=== PATIENT | female | born 1980 | race Caucasian/White ===

== ENCOUNTER → 2021-02-05 11:38 | Outpatient (CLI) | payer OTHER, SELFPAY ==
--- NOTE | 2021-02-05 11:43 | XR_ITS ---
PROCEDURE: XR HAND RT MIN 3V CLINICAL INDICATION: right hand pain COMPARISON: No exams were available for comparison FINDINGS: Comminuted fracture involves the distal aspect of the 5th metacarpal with mild radial and palmar angulation of the distal fracture fragment with only minimal lateral and palmar displacement. The joint spaces are well-preserved. No significant degenerative/arthritic changes. No erosive changes evident. Other findings:None. IMPRESSION: Boxer's fracture 5th metacarpal Dictated by: Prudencio Bianchi MD 02/05/2021 12:06 Prudencio Bianchi MD in [facility] 02/05/2021 12:06
== END ==
PROVIDERS: PCP Physician Assistant; Visit Provider Physician Assistant
DX: M79.641 Pain in right hand (principal)
CPT/HCPCS: 73130

== ENCOUNTER → 2021-03-02 11:35 | Outpatient (CLI) | payer OTHER, SELFPAY ==
[2021-03-02] VITALS (8 sets, daily range): BP systolic 123–148; BP diastolic 74–98; PULSE 74–91; RESP 18; TEMP 36.9; O2SAT 98–100
== END ==
PROVIDERS: PCP Physician Assistant; Visit Provider Physician Assistant
DX: U07.1 COVID-19 (principal); Z23 Encounter for immunization
CPT/HCPCS: 96365

== ENCOUNTER → 2021-05-25 13:32 | Outpatient (CLI) | payer OTHER, SELFPAY ==
[2021-05-25 14:24] LABS: Chloride 104 mmol/L (98-107); Sodium 138 mmol/L (136-145)
[2021-05-25 14:25] LABS: Potassium 4.3 mmoL/L (3.5-5.1)
[2021-05-25 14:27] LABS: Alanine Aminotransferase 39 U/L (12-78); Albumin Level 3.9 g/dl (3.5-5.0); Albumin/Globulin Ratio 1.6 (1.1-1.8); Alkaline Phosphatase 62 U/L (38-126); Anion Gap 11.3 mEq/L (5-15); Aspartate Amino Transferase 78 U/L (14-36); Blood Urea Nitrogen 10 mg/dl (7-17); Calcium 8.5 mg/dl (8.4-10.2); Carbon Dioxide 27 mmol/L (22.0-30.0); Cholesterol 155 mg/dl (140-200); Estimated Glomerular Filt Rate 110 ml/min (>60); GFR (African American) 133 ML/MIN (>60); Globulin 2.5 g/dL (1.3-3.2); Glucose 88 mg/dl (74-100); Iron 20 ug/dL (37-170); Total Protein,Serum 6.4 g/dl (6.3-8.2); Triglycerides 90 mg/dl (30-150); VLDL Cholesterol 18 mg/dL (0-40)
[2021-05-25 14:28] LABS: Basophils # 0.1 K/mm3 (0-0.2); Basophils % 0.9 % (0.1-2.0); Eosinophils # 0.1 K/mm3 (0.0-0.4); Eosinophils % 1.5 % (0.1-12.0); HDL Cholesterol 79 mg/dl (40-60); Hematocrit 33.8 % (37.0-47.0); Hemoglobin 10.5 g/dL (12.2-16.2); Lymphocytes # 2.2 K/mm3 (0.7-4.5); Mean Corpuscular HGB Conc 31.1 g/dL (31.8-35.4); Mean Corpuscular Hemoglobin 24.2 pg (27.0-31.2); Mean Platelet Volume 7.7 fl (7.4-10.4); Monocytes # 0.4 K/mm3 (0.1-1.0); Monocytes % 5.6 % (1.7-9.3); Neutrophils # 4.1 K/mm3 (1.8-7.8); Platelet Count 506 K/mm3 (142-424); Red Blood Count 4.34 M/mm3 (4.20-5.40); Red Cell Distribution Width 17.5 % (11.5-17.5); White Blood Count 6.9 K/mm3 (4.8-10.8)
[2021-05-25 14:37] LABS: Total Iron Binding Capacity 467 ug/dL (265-497)
[2021-05-25 14:38] LABS: Direct LDL Cholesterol 60.59 mg/dL (100-129)
[2021-05-25 14:41] LABS: Bilirubin,Total < 0.1 mg/dl (0.2-1.3)
[2021-05-25 14:49] LABS: 25-OH Vitamin D, Total 21.9 ng/mL (30-100)
[2021-05-25 14:57] LABS: Thyroid Stimulating Hormone 1.17 uIU/mL (0.465-4.68)
[2021-05-25 15:22] LABS: Vitamin B12 273 pg/mL (239-931)
[2021-05-27 09:09] LABS: Transferrin 387 mg/dL (192-364)
== END ==
PROVIDERS: Visit Provider Physician Assistant
DX: R53.83 Other fatigue (principal); E55.9 Vitamin D deficiency, unspecified; Z79.899 Other long term (current) drug therapy
CPT/HCPCS: 36415; 80053; 80061; 82306; 82607; 83540; 83550; 84443; 84466; 85025

== ENCOUNTER → 2021-07-02 11:55 | Outpatient (CLI) | payer OTHER, SELFPAY ==
[2021-07-02 12:50] LABS: Basophils # 0.1 K/mm3 (0-0.2); Basophils % 0.9 % (0.1-2.0); Eosinophils # 0.1 K/mm3 (0.0-0.4); Hematocrit 37.5 % (37.0-47.0); Hemoglobin 11.9 g/dL (12.2-16.2); Lymphocytes # 1.9 K/mm3 (0.7-4.5); Lymphocytes % 33.1 % (10-50); Mean Corpuscular HGB Conc 31.6 g/dL (31.8-35.4); Mean Corpuscular Hemoglobin 27.5 pg (27.0-31.2); Mean Corpuscular Volume 86.9 fl (81-99); Mean Platelet Volume 7.5 fl (7.4-10.4); Monocytes # 0.3 K/mm3 (0.1-1.0); Monocytes % 4.4 % (1.7-9.3); Neutrophils # 3.5 K/mm3 (1.8-7.8); Neutrophils % 60.6 % (37.0-80.0); Platelet Count 457 K/mm3 (142-424); Red Blood Count 4.31 M/mm3 (4.20-5.40); Red Cell Distribution Width 21.2 % (11.5-17.5); White Blood Count 5.8 K/mm3 (4.8-10.8)
[2021-07-02 13:13] LABS: Iron 28 ug/dL (37-170)
[2021-07-02 13:22] LABS: Total Iron Binding Capacity 363 ug/dL (265-497)
== END ==
PROVIDERS: Visit Provider Physician Assistant
DX: Z00.00 Encounter for general adult medical examination without abnormal findings (principal)
CPT/HCPCS: 36415; 82728; 83540; 83550; 85025

== ENCOUNTER → 2022-07-05 15:31 | Outpatient (CLI) | payer OTHER, SELFPAY ==
[2022-07-05 14:11] LABS: Basophils # 0.1 K/mm3 (0-0.2); Basophils % 0.9 % (0.1-2.0); Eosinophils # 0.1 K/mm3 (0.0-0.4); Eosinophils % 1.2 % (0.1-12.0); Hematocrit 45.1 % (37.0-47.0); Hemoglobin 14.7 g/dL (12.2-16.2); Lymphocytes # 2.5 K/mm3 (0.7-4.5); Lymphocytes % 29.7 % (10-50); Mean Corpuscular HGB Conc 32.6 g/dL (31.8-35.4); Mean Corpuscular Hemoglobin 30.6 pg (27.0-31.2); Mean Corpuscular Volume 93.9 fl (81-99); Mean Platelet Volume 8.3 fl (7.4-10.4); Monocytes # 0.4 K/mm3 (0.1-1.0); Monocytes % 4.6 % (1.7-9.3); Neutrophils # 5.2 K/mm3 (1.8-7.8); Neutrophils % 63.6 % (37.0-80.0); Platelet Count 457 K/mm3 (142-424); Red Blood Count 4.81 M/mm3 (4.20-5.40); White Blood Count 8.2 K/mm3 (4.8-10.8)
[2022-07-05 14:15] LABS: Iron 125 ug/dL (37-170)
[2022-07-05 14:51] LABS: Ferritin 16.6 ng/ml (6.24-137)
[2022-07-05 15:01] LABS: Total Iron Binding Capacity 358 ug/dL (265-497)
[2022-07-05 15:30] LABS: 25-OH Vitamin D, Total 33.5 ng/mL (30-100)
[2022-07-05 16:02] LABS: Vitamin B12 614 pg/mL (239-931)
[2022-07-07 15:35] LABS: Peripheral Smear Review Scanned Result
== END ==
PROVIDERS: PCP Physician Assistant; Visit Provider Physician Assistant
DX: D51.9 Vitamin B12 deficiency anemia, unspecified (principal); E55.9 Vitamin D deficiency, unspecified; E66.9 Obesity, unspecified; Z68.39 Body mass index [BMI] 39.0-39.9, adult; Z86.2 Personal history of diseases of the blood and blood-forming organs and certain disorders involving the immune mechanism; Z90.710 Acquired absence of both cervix and uterus
CPT/HCPCS: 82306; 82607; 82728; 83540; 83550; 85025

== ENCOUNTER 2022-09-15 11:52 | Emergency (ER) | payer BC, SELFPAY ==
[2022-09-15] VITALS (11 sets, daily range): BP systolic 123–164; BP diastolic 80–96; PULSE 85–105; RESP 13–19; TEMP 36.7–36.9; O2SAT 96–100; BMI 37.0
--- NOTE | 2022-09-15 11:58 | ECG_ITS ---
APPROVED REPORT Exam: Resting ECG HR:110 bpm ECG Measurements Heart Rate 110 AXES MI 146 P 62 QRSd 97 QRS 91 QT 324 T 61 QTc 389 Conclusion SINUS TACHYCARDIA WITH OCCASIONAL VENTRICULAR PREMATURE COMPLEXES POSSIBLE LEFT ATRIAL ENLARGEMENT [-0.1mV P-WAVE IN V1/V2] BORDERLINE RIGHT AXIS DEVIATION [QRS AXIS > 90] INCOMPLETE RIGHT BUNDLE BRANCH BLOCK [90+ ms QRS DURATION, TERMINAL R IN V1/V2, 40+ ms S IN I/aVL/V4/V5/V6] MODERATE ST DEPRESSION [0.05+ mV ST DEPRESSION] ABNORMAL ECG UNCONFIRMED REPORT Electronically signed by : John Zavaleta MD 09/15/2022 21:43:37
--- NOTE | 2022-09-15 11:59 | XR_ITS ---
PROCEDURE INFORMATION: Exam: XR Chest Exam date and time: 09/15/2022 12:29 PM Age: 42 years old Clinical indication: Other: Chest discomfort; Patient HX: Smoker TECHNIQUE: Imaging protocol: Radiologic exam of the chest. Views: 1 view. Portable upright chest x-ray. COMPARISON: No relevant prior studies available. FINDINGS: Lungs: No consolidation or lung nodules. At least 1 or more subcentimeter calcified granulomas in the right lung. Pleural spaces: No pleural effusion. No pneumothorax. Heart/Mediastinum: No abnormalities. No cardiomegaly. No pulmonary vascular congestion. Bones/joints: No fractures or bone lesions. IMPRESSION: No acute findings in the chest.
--- NOTE | 2022-09-15 12:01 | PC.NURSE ---
pt updated on poc. pt on ekg monitor tech. bed in lowest position, call light w/i reach. family at bedside.
--- NOTE | 2022-09-15 12:03 | PC.NURSE ---
DAYAMI MIN at
[2022-09-15 12:11] LABS: Basophils # 0.1 K/mm3 (0-0.2); Basophils % 0.7 % (0.1-2.0); Eosinophils # 0.1 K/mm3 (0.0-0.4); Eosinophils % 1.7 % (0.1-12.0); Hematocrit 46.4 % (37.0-47.0); Hemoglobin 15.5 g/dL (12.2-16.2); Lymphocytes # 3.1 K/mm3 (0.7-4.5); Lymphocytes % 37.4 % (10-50); Mean Corpuscular HGB Conc 33.5 g/dL (31.8-35.4); Mean Corpuscular Volume 92.6 fl (81-99); Mean Platelet Volume 7.8 fl (7.4-10.4); Monocytes # 0.5 K/mm3 (0.1-1.0); Monocytes % 5.7 % (1.7-9.3); Neutrophils # 4.5 K/mm3 (1.8-7.8); Neutrophils % 54.4 % (37.0-80.0); Platelet Count 385 K/mm3 (142-424); Red Blood Count 5.01 M/mm3 (4.20-5.40); Red Cell Distribution Width 13.3 % (11.5-17.5); White Blood Count 8.3 K/mm3 (4.8-10.8)
--- NOTE | 2022-09-15 12:15 | PC.NURSE ---
Radiology @ [facility] for chest x-ray
[2022-09-15 12:20] LABS: Alanine Aminotransferase 24 U/L (12-78); Albumin Level 4.1 g/dl (3.5-5.0); Alkaline Phosphatase 71 U/L (38-126); Anion Gap 14.2 mEq/L (5-15); Aspartate Amino Transferase 27 U/L (14-36); Bilirubin,Indirect 0.5 mg/dL (0.0-0.9); Bilirubin,Total 0.5 mg/dl (0.2-1.3); Bilirubin,Unconjugated 0.6 mg/dL (0.0-1.1); Blood Urea Nitrogen 8 mg/dl (7-17); Calcium 8.6 mg/dl (8.4-10.2); Carbon Dioxide 23 mmol/L (22.0-30.0); Chloride 108 mmol/L (98-107); Creatinine Clearance Estimated 145 mL/min (50-200); Estimated Glomerular Filt Rate 91 ml/min (>60); GFR (African American) 111 ML/MIN (>60); Glucose 105 mg/dl (74-100); Potassium 3.2 mmoL/L (3.5-5.1); Sodium 142 mmol/L (136-145); Total Protein,Serum 6.7 g/dl (6.3-8.2)
[2022-09-15 12:24] LABS: D-Dimer 0.52 ug/mL (0.0-0.5)
--- NOTE | 2022-09-15 12:28 | CT_ITS ---
PROCEDURE INFORMATION: Exam: CTA Chest With Contrast Exam date and time: 09/15/2022 12:47 PM Age: 42 years old Clinical indication: Shortness of breath; Sternal or substernal pain; Patient HX: Smoker, d-dimer .52; Additional info: ESAU, eddi TECHNIQUE: Imaging protocol: Computed tomographic angiography of the chest with contrast. 3D rendering (Not supervised by radiologist): MIP and/or 3D reconstructed images were created by the technologist. Radiation optimization: All CT scans at this facility use at least one of these dose optimization techniques: automated exposure control; mA and/or kV adjustment per patient size (includes targeted exams where dose is matched to clinical indication); or iterative reconstruction. Contrast material: ISOVUE 370; Contrast volume: 70 ml; Contrast route: INTRAVENOUS (IV); REPORTING DATA: Count of CT and Cardiac NM exams in prior 12 months: This patient has received 0 known CTs and 0 known cardiac nuclear medicine studies in the 12 months prior to the current study. COMPARISON: CR XR CHEST PORTABLE 09/15/2022 12:29 PM FINDINGS: Pulmonary arteries: Normal. No pulmonary emboli. Aorta: Unremarkable. No aortic aneurysm. No aortic dissection. Lungs: Several calcified granulomas scattered in the right lung. No lung nodules or airspace consolidation. Pleural spaces: Unremarkable. No pneumothorax. No pleural effusion. Heart: Unremarkable. No cardiomegaly. No pericardial effusion. Coronary arteries: No coronary artery calcifications. Lymph nodes: Calcified right hilar and subcarinal lymph nodes. Gallbladder and bile ducts: Gallbladder is surgically absent. No biliary ductal dilatation. Kidneys and ureters: 11 mm nonobstructing stone in the upper pole left kidney. Bones/joints: Unremarkable. No acute fracture. Soft tissues: Unremarkable. IMPRESSION: 1. No pulmonary emboli. No aortic aneurysm or intimal dissection. 2. No acute findings in the chest. 3. Evidence of prior granulomatous infection. 4. Nonobstructing 11 mm stone in the upper pole left kidney.
[2022-09-15 12:33] LABS: Troponin I < 0.01 ng/ml (0.00-0.034)
--- NOTE | 2022-09-15 12:41 | PC.NURSE ---
Patient heading to CT
--- NOTE | 2022-09-15 13:00 | PC.NURSE ---
pt returned from CT scan. updated on wait time. call light w/i reach.
--- NOTE | 2022-09-15 13:21 | HMH.EDGENADL ---
Discharge Plan Disposition Patient Disposition: Home, Self-Care Condition: Good Chief Complaint: Chest Pain Prescriptions Prescriptions: No Action Women's Multivitamin Gummies 200 mcg tablet,chewable PO ondansetron 8 mg tablet,disintegrating 8 mg PO Q8H Qty: 30 0RF Ozempic 0.25 mg or 0.5 mg (2 mg/3 mL) pen injector 0.25 mg SQ WEEKLY Qty: 3 2RF Rx Instructions: for 4 weeks, then increase to 0.5 mg weekly albuterol sulfate [ProAir HFA] 90 mcg/actuation HFA aerosol inhaler 2 puff INHALATION Q4-6H PRN (Reason: shortness of breath or wheezing) Qty: 8.5 3RF Rx Instructions: administer with spacer Slow Fe 142 mg (45 mg iron) tablet extended release 142 mg PO DAILY Qty: 30 3RF cholecalciferol (vitamin D3) 25 mcg (1,000 unit) capsule 25 mcg PO DAILY Qty: 90 3RF cholecalciferol (vitamin D3) 1,250 mcg (50,000 unit) capsule 1,250 mcg PO WEEKLY Qty: 14 3RF cyanocobalamin (vitamin B-12) 1,000 mcg/mL solution 100 mcg SQ .COMPLEX Qty: 10 2RF Rx Instructions: 1 ml daily SQ x 7 days 1 ml SQ Qweekly for 1 month 1 ml SQ once monthly fluconazole [Diflucan] 150 mg tablet 150 mg PO DAILY Qty: 5 0RF ofloxacin 0.3 % drops See Rx Instructions ophthalmic (eye) .COMPLEX Qty: 10 0RF Rx Instructions: put 1-2 drps into affected eye(s) every 2-4 h x 2 days, then 1-2 drps 4 times/day days 3-7 ophthalmic (eye) Slow Fe 142 mg (45 mg iron) tablet extended release 142 mg PO DAILY Qty: 90 1RF Referrals Follow up/Referrals: Melodie Candelaria PA [Primary Care Provider] - See instructions Clinical Impressions Clinical Impression: Heart palpitations Discharge ED Provider: Man Durán Adult HPI General Chief complaint: Chest Pain Stated complaint: chest pain Time Seen by Provider: 09/15/22 11:56 Mode of Arrival: Ambulatory Source of Information: Patient Limitations: No Limitations Description of Symptoms (Recalled from ER Triage Doc. by RN): pt presents to ED with chest discomfort. pt states Friday she was awoken to feeling bad and having discomfort in her chest. History of Present Illness HPI narrative: 42yo F evaluated for chest pain. Initial symptoms were late Friday night, early Friday morning. Symptoms worsened today. Complains of tachycardia with a heart rate up to 160. Mild shortness of breath. Mild nausea. No diaphoresis. No history of cardiac disease. Patient does smoke. Father had multiple heart attacks before the age of 60. No previous cardiac work-up. Related Data Home Medications Medication Instructions Recorded Confirmed multivitamin with minerals-folic tab PO 02/05/21 07/10/22 acid 200 mcg chewable tablet (Women's Multivitamin Gummies) Previous Rx's Medication Instructions Recorded albuterol sulfate 90 mcg/actuation 2 puff inhalation Q4-6H PRN 02/28/21 aerosol inhaler (ProAir HFA) shortness of breath or wheezing #8.5 grams ferrous sulfate 142 mg (45 mg 142 mg PO DAILY Anemia #30 tabs 05/28/21 iron) tablet,extended release (Slow Fe) cholecalciferol (vitamin D3) 25 25 mcg PO DAILY #90 caps 07/04/21 mcg (1,000 unit) capsule cholecalciferol (vitamin D3) 1,250 1,250 mcg PO WEEKLY #14 caps 10/11/21 mcg (50,000 unit) capsule cyanocobalamin (vitamin B-12) 100 mcg (0.1 mL) SQ .COMPLEX #10 mL 12/05/21 1,000 mcg/mL injection solution ondansetron 8 mg disintegrating 8 mg PO Q8H nausea and vomiting 07/10/22 tablet #30 tabs semaglutide 0.25 mg or 0.5 mg (2 0.25 mg (0.4 mL) SQ WEEKLY #3 mL 07/10/22 mg/3 mL) subcutaneous pen injector (Ozempic) fluconazole 150 mg tablet 150 mg PO DAILY #5 tabs 07/15/22 (Diflucan) ofloxacin 0.3 % eye drops See Rx Instructions ophthalmic 07/25/22 (eye) .COMPLEX #10 mL ferrous sulfate 142 mg (45 mg 142 mg PO DAILY #90 tabs 08/15/22 iron) tablet,extended release (Slow Fe) Allergies Allergy/AdvReac Type Severity Reaction Status Date / Time moxifloxacin [From
--- NOTE | 2022-09-15 13:23 | PC.NURSE ---
ER states to draw second troponin at 2pm, updated pt on POC
--- NOTE | 2022-09-15 13:51 | PC.NURSE ---
second troponin sent.
--- NOTE | 2022-09-15 13:51 | PC.NURSE ---
pt updated on POC. family at bedside.
[2022-09-15 14:15] LABS: Troponin I < 0.01 ng/ml (0.00-0.034)
== END 2022-09-15 14:28 | disposition home or self-care (01) ==
PROVIDERS: Emergency Provider Family Medicine; PCP Physician Assistant
DX: R07.9 Chest pain, unspecified (principal); R00.2 Palpitations; F17.200 Nicotine dependence, unspecified, uncomplicated
CPT/HCPCS: 71045; 71275; 80048; 80076; 84484; 85025; 85378; 93005; 99285; Q9967

== ENCOUNTER → 2022-09-19 12:58 | Outpatient (CLI) | payer BC, SELFPAY | LOC: RT 12:59 | PROVIDERS: PCP Physician Assistant; Visit Provider Physician Assistant | DX: R00.2 Palpitations (principal) | CPT/HCPCS: 93225; 93226 ==

== ENCOUNTER 2025-02-22 13:45 | Outpatient (CLI) | payer OTHER, SELFPAY ==
--- OUTSIDE RECORDS SUMMARY | 2025-02-22 13:50 | XMS_ITS | Clinical Summary ---
Author Organization [facility] Address [address] [place] [address] Care Team Providers Care Mammal Keeper Name Role Phone Melodie Candelaria Primary Care Provider [phone] Allergies Active Allergy Reactions Criticality Noted Date Comments Adhesive Tape Itching Low 02/26/2022 Moxifloxacin Anaphylaxis High 02/26/2022 Medications acetaminophen (TYLENOL) 325 MG tablet Take 2 tablets by mouth Every 4 (Four) Hours As Needed for Mild Pain. Take every 4 hours while awake for 7 days then only as needed. 100 tablet 03/07/2022 Active metoprolol succinate XL (TOPROL-XL) 25 MG 24 hr tabletIndication s:PVC (premature ventricular contraction) Take 1.5 tablets by mouth Every Night. 135 tablet 3 11/03/2023 Active SEMAGLUTIDE, 1 MG/DOSE, SC Active Active Problems Problem Noted Date Diagnosed Date Tobacco dependence 02/02/2024 Abnormal stress test 12/10/2022 Overview (12/10/2022): Added automatically from request for surgery [id number] Palpitations 12/02/2022 PVC's (premature ventricular contractions) 12/02 Excessive bleeding in premenopausal period 03/07 Fibroids 03/07/2022 Pelvic adhesions 03/07/2022 Family History Medical History Relation Name Comments No Known Problems Brother TC Anemia Father Terry Miller Heart attack Father Terry Miller heart atacks 1996&2006 5 stents Heart disease Father Terry Miller Hypertension Father Terry Miller Hypertension Sister MISHA Relation Name Status Comments Brother TC Alive Father Terry Miller Alive Mother Alive Sister MISHA Alive Social History Tobacco Use Types Packs/Day Years Used Date Smoking Tobacco: Every Day Cigarettes 0.3 25.1 Started: 01/11/2000 Smokeless Tobacco: Never Tobacco Cessation:Ready to Q uit: Not Asked; Counseling Given: Not Answered Alcohol Use Standard Drinks/Week Comments Not Currently 0 (1 standard drink = 0.6 oz pur e alcohol) AUDIT-C Answer Date Recorded Q1: How often do you have a drink containing alcohol? Never 12/18/2022 Q2: How many drinks containi ng alcohol do you have on a typical day when you are drinking? Patient does not drink Q3: How often do you have si x or more drinks on one occasion? Never 12/18/2022 Abuse Screen Answer Date Recorded Unsafe at Home or Work/School Not on file Feels Threatened by Someone? Not on file 01/2024 Does Anyone Keep You from Co ntacting Others or Doint Things Outside the Home? Not on file 12/19/2023 Physical Sign of Abuse Present Not on file 0 12/19/2023 Housing Stability Answer Date Recorded Current Living Arrangements Not on file 01/2024 Potentially Unsafe Housing Conditions Not on carol e 12/19/2023 Family and Community Support Answer Torres e Recorded Help with Day-to-Day Activities Not on file 02/17/2023 Lonely or Isolated Not on file 02/17/2023 Employment Answer Date Recorded Do you want help finding or keeping work or a florencia b? Not on file 02/17/2023 Disabilities Answer Date Recorded Concentrating, Remembering, or Making Decisions Difficulty Not on file 12/19/2023 Doing Errands Independently Difficulty Not on fi le 12/19/2023 Education Answer Date Recorded Help with school or training? Not on file Preferred Language Not on file 03/21/2023 Comments No Sex and Gender Information Value Date Recorded Sex Assigned at Not on file Legal Sex Female 11:49 AM EDT Gender Identity Not on file Sexual Orientation Not on file Last Filed Vital Signs Vital Sign Reading Time Taken Comments Blood Pressure 138/82 02/02/2024 1:53 PM EDT Pulse 92 02/02/2024 1:53 PM EDT Temperature 36.2 C (97.2 F) 12/18/2022 11:23 AM EDT Respiratory Rate 18 12/18/2022 3:10 PM EDT Oxygen Saturation 96% 02/02/2024 1:53 PM EDT Inhaled Oxygen Concentration - - Weight 83.9 kg (185 lb) 02/02/2024 1:53 PM EDT Height 154.9 cm (5' 0.98 ) 02/02/2024 1:53 PM ED T Body Mass Index 34.97 02/02/2024 1:53 PM EDT Plan of Treatment Upcoming Encounters Date Type Department Care Team (Late st Contact Info) Description 03/07/2025 1:15 PM EDT Office Visit [facility] [address] [facility] [address] [place] [address] Mary Maria, DIESEL MOTOR MECHANIC [address] [facility] [address] [place] [address] Health Maintenance Due Date Last Done Comments Annual Gynecologic Pelvic and Breast Exam 1980 Pneumococcal Vaccine 0-49 (1 of 2 - PCV) 08/03/1998 TDAP/TD VACCINES (1 - Tdap) 08/03/1998 MAMMOGRAM 2019 ANNUAL PHYSICAL 02/26/2022 HEPATITIS C SCREENING 02/26/2022 COLOGUARD 08/03/2024 COLON CANCER SCREENING 5 YEAR SIGMOIDOSCOPY 08/03/2024 COLONOSCOPY 08/03/2024 COLORECTAL CANCER SCREENING 08/03/2024 CT COLONOGRAPHY 08/03/2024 FECAL OCCULT BLOOD TEST 08/03/2024 FIT Testing (1 year) 08/03/2024 INFLUENZA VACCINE 12/10/[address] [place] [address] R Advance Directives * CPR (Attempt to Resuscitate) (Latest Code Status on File) Date Activated Date Inactivated Comments 12/18/2022 3:16 PM 12/18/2022 8:17 PM Question Answer Comments Code Status (Patient has no pulse and is not breathing): CPR (Attempt to Resuscitate) Medical Interventions (Patie nt has pulse or is breathing): Full Level Of Support Discussed With: Patient Care Teams Mammal Keeper Relationship Specialty Start Date End Date Melodie Candelaria PA PCP - General Physician Dressmaker Helper 11/21/21
--- OUTSIDE RECORDS SUMMARY | 2025-02-22 13:50 | XMS_ITS | Continuity of Care Document ---
Author Organization [facility] Address [address] [address] Insurance Providers Payer Plan Claims Address Claims Phone Policy Number Group Number Relation Employer Guarantor Name Guarantor Guarantor Address Guarantor Phone DERREK FLANAGAN CROSS [address], [place] [address] tel:[phone] [id number] Self Laura Michael [address] [place] [address] Derrek cardona Pathw ay [id number] Self Laura Michael [address] [place] [address] Derrek Pedroza Progr am Out [id number] Self Laura Coatescker [address] [place] [address] Problems Condition ICD9 code ICD10 code SNOMED code Start Date End Date S tatus Encounter for screening for other metabolic disorders Z13.228 Results No Results Allergies, adverse reactions, alerts No known allergies and adverse reactions Medications No administered medications reported Vital Signs No vital signs reported Social History No smoking Hx information available
--- OUTSIDE RECORDS SUMMARY | 2025-02-22 13:50 | XMS_ITS | Patient Health Record ---
Author Organization [facility] Address [address] [facility] [address] [place] [address] Care Team Providers Care Fleet Assistant Name Role Phone Bhumika Valdes Unavailable [phone] Allergies Allergen (clinical drug ingredient) Drug/Non Drug Allergy documented on EMR Reaction Allergy Type Onset Date Status moxifloxacin Moxifloxacin HCl Unknown Drug Allergy Active Surgical Glue rash Allergy Active Reason For Referral No Information Medications Medication SIG (Take, Route, Frequency, Duration) Notes Start Date End Date Status Vitamin D Active Vitamin B12 Active Iron Active Social History Tobacco Use: Social History Observation Description Date Details (start date - stop date) Current Smoker NA - NA Social History Drugs/Alcohol: Social Info Question Answer Notes Drugs Have you used drugs other than those for medical reasons in the past 12 months? No Steroid Use Have you used anabolic (body building) st eroids? No Alcohol Screen Did you have a drink containing alcohol in the past year? No Points 0 Interpretation Negative Tobacco Use: Social Info Question Answer Notes Tobacco Use/Smoking Are you a current every day smo ker Additional Details Category Social Info Options Details Miscellaneous: Caffeine: 1-2 cups per day Problems Problem Type SNOMED Code ICD Code Onset Dates Problem Status W/U Status Risk Notes Problem Menorrhagia (finding) (207874815) Menorrhagia, premenopausal (N92.4) Active confirmed Problem Excessive and frequent menstruation (533056133) Excessive and frequent menstruation (N92.0) Active confirmed Problem Chronic blood loss anemia (063517249) Chronic blood loss anemia (D50.0) Active confirmed Problem Fibroid (8506920930) Fibroid (D21.9) Active confirmed Problem Abnormal uterine bleeding (10596040493380) Abnormal uterine bleeding (AUB) (N93.9) Active confirmed Problem Abnormal uterine bleeding (71009191027758) Abnormal uterine bleeding (N93.9) Active confirmed Plan Of Treatment No Information Insurance Providers Payer Name Payer Address Payer Phone Subscriber Number Group Number Insured Name Patient Relationship to Insured Coverage Start Date Coverage End Date Gina STONEO [address] [place] [address] [id number] Laura Nava Self - patient is the insured 2 Medical (General) History Medical History History ICD Code Acid reflux Asthma Mastitis Yeast Infections Surgical History Surgery Date(Month/Year) Breast reduction Gallbladder removal section 03/07/22 Total robotic hysterectomy, jesusita ateral salpingectomy Hospitalization History Reason Date(Month/Year) Caesarean section
[2025-02-22 15:43] LABS: Free T4 (Free Thyroxine) 0.95 ng/dl (0.78-2.19)
[2025-02-22 16:03] LABS: Thyroid Stimulating Hormone 0.84 uIU/mL (0.465-4.68)
[2025-02-23 12:15] LABS: FSH 28.2 mIU/mL (.); LH 21.1 mIU/mL (.); Testosterone,Total 19 ng/dL (4-50)
== END 2025-02-22 23:59 | disposition home or self-care (01) ==
LOC: LAB 13:48
PROVIDERS: PCP Physician Assistant; Visit Provider Physician Assistant
DX: R68.82 Decreased libido (principal)
CPT/HCPCS: 36415; 82672; 83001; 83002; 84144; 84403; 84439; 84443